=== PATIENT | female | born 1985 | race Caucasian/White ===

== ENCOUNTER → 2024-01-27 12:20 | Outpatient (CLI) | payer OTHER, SELFPAY ==
--- NOTE | 2024-01-27 12:24 | DI.US.S_ITS ---
PROCEDURE: US OB >= 14 WEEKS FETUS INDICATIONS: anatomy scan OUTSIDE/PRIOR DATING DATA: Last menstrual period (LMP): 09/17/2023. LMP-based estimated date of delivery (SARAH): 06/23/2024. TECHNIQUE: Real-time scanning was performed of the fetus, with image documentation and biometric measurements. Endovaginal scanning: No COMPARISON: None. FINDINGS: General: A single living intrauterine gestation is present. Presentation: Breech. Placenta: Placental position is anterior , without previa. Amniotic fluid index: 15.5 cm, normal range is 5-24 cm. Single deepest vertical pocket is 4.5 cm. heart rate: 153 beats per minute. Maternal cervical canal: 4.9 cm long. Normal lower limit is 2.5 cm. biometrics: Biparietal diameter: 4.3 cm, 19 week 0 day Head circumference: 15.5 cm, 18 week 3 day Abdominal circumference: 13.7 cm, 19 week 1 day Femur length: 28.3 cm, 18 week 5 day Clinically estimated gestational age: 18 week 6 day Composite gestational age from present scan: 18 week 6 day Estimated weight and percentile: 261 g, 45 percentile Anatomic survey: Neuro: Ventricles are non-dilated at less than 10 mm. Cisterna magna is normal at 3-11 mm. Cerebellum is normal in size and morphology. Nuchal skin fold: Normal at less than 6 mm between 14-21 weeks gestational age. Face: Nose and lips, facial profile are normal. Spine: Not well seen Heart: Not well seen Diaphragm: Diaphragm is intact. Stomach: Left-sided stomach is present. Kidneys: Right kidney not well seen Cord: 3-vessel cord has orthotopic insertion. Bladder: Normal in size. Extremities: All 4 extremities identified. IMPRESSION: Single live intrauterine consistent with 18 week 6 day gestation. spine, cardiac views, and right kidney are not well seen currently. Attention on follow-up. Approved by: Darren Manuel M.D. on 01/27/2024 at 16:41
== END ==
PROVIDERS: Referring Provider Obstetrics & Gynecology; Visit Provider Obstetrics & Gynecology
DX: O32.1XX0 Maternal care for breech presentation, not applicable or unspecified (principal); Z3A.18 18 weeks gestation of pregnancy
CPT/HCPCS: 76811

== ENCOUNTER → 2024-03-09 10:51 | Outpatient (CLI) | payer OTHER, SELFPAY ==
--- NOTE | 2024-03-09 10:53 | DI.US.S_ITS ---
PROCEDURE: US OB LIMITED INDICATIONS: f/u incomplete FAS views OUTSIDE/PRIOR DATING DATA: Last menstrual period (LMP): 09/17/2023. LMP-based estimated date of delivery (SARAH): 06/23/2024. First dating scan (date and location): Not applicable. Estimated date of delivery (SARAH) from first dating scan: Not applicable. The calculations are made using the working SARAH of 06/23/2024. TECHNIQUE: Real-time scanning was performed of the fetus, with image documentation and biometric measurements. Endovaginal scanning: No COMPARISON: None. FINDINGS: General: A single living intrauterine gestation is present. Presentation: Vertex. Placenta: Placental position is anterior, without previa. Amniotic fluid index: 11.4 cm, normal range is 5-24 cm. Single deepest vertical pocket is 4.2 cm. heart rate: 132 beats per minute. Maternal cervical canal: 4.2 cm long. Normal lower limit is 2.5 cm. Clinically estimated gestational age: 24 week 6 day Other: Not applicable. IMPRESSION: Single live intrauterine consistent with 24 week 6 day gestation. Cardiac outflow tracks, lumbosacral spine, both kidneys are adequately observed and appear normal. This results in a completed normal appearing anatomic survey Approved by: Darren Manuel M.D. on 03/09/2024 at 15:31
== END ==
PROVIDERS: Referring Provider Obstetrics & Gynecology; Visit Provider Obstetrics & Gynecology
DX: Z36.89 Encounter for other specified antenatal screening (principal); Z3A.24 24 weeks gestation of pregnancy
CPT/HCPCS: 76815

== ENCOUNTER → 2024-03-12 10:02 | Outpatient (CLI) | payer OTHER, SELFPAY ==
[2024-03-12 13:00] LABS: Hematocrit 36.8 % (36-46); Hemoglobin 12.6 g/dL (12.0-16.0)
[2024-03-12 15:55] LABS: GTT (PREG) 1 Hour PP 50gm Dose 146 mg/dL (76-139)
== END ==
PROVIDERS: Referring Provider Obstetrics & Gynecology; Visit Provider Obstetrics & Gynecology
DX: Z34.02 Encounter for supervision of normal first pregnancy, second trimester (principal); Z3A.26 26 weeks gestation of pregnancy
CPT/HCPCS: 36415; 82950; 85014; 85018; 86850; 86900; 86901

== ENCOUNTER → 2024-04-10 14:10 | Outpatient (CLI) | payer OTHER, SELFPAY | PROVIDERS: Visit Provider Obstetrics & Gynecology | DX: Z34.82 Encounter for supervision of other normal pregnancy, second trimester (principal); Z3A.29 29 weeks gestation of pregnancy | CPT/HCPCS: 87086 ==

== ENCOUNTER → 2024-05-08 11:04 | Outpatient (CLI) | payer OTHER, SELFPAY ==
[2024-05-08 11:51] LABS: Add Manual Diff / Slide Review NO; Basophils Absolute Auto 0 /uL (0-100); Basophils Percent Auto 0.2 % (0-2); Eosinophils Absolute Auto 100 /uL (0-450); Eosinophils Percent Auto 1.1 % (2-4); Hematocrit 38.1 % (36-46); Lymphocytes Absolute Auto 1000 /uL (1100-4500); Lymphocytes Percent Auto 8.9 % (25-40); Mean Corpuscular HGB Conc 34.1 % (30-36); Mean Corpuscular Hemoglobin 32.3 PG (26-34); Mean Corpuscular Volume 94.8 fL (80-100); Monocytes Absolute Auto 700 /uL (0-900); Monocytes Percent Auto 6.2 % (3-14); Neutrophils Absolute Auto 9300 /uL (1500-7000); Neutrophils Percent Auto 83.6 % (50-75); Platelet Count 228 X10^3/uL (150-400); Red Blood Cell Count 4.01 X10^6/uL (4.0-5.2); Red Cell Distribution Width 13.5 % (11.6-14.8); White Blood Cell Count 11.2 X10^3/uL (4.5-11.0)
[2024-05-08 12:12] LABS: Alanine Aminotransferase 46 IU/L (<35); Albumin 3.6 g/dL (3.5-5.0); Albumin Globulin Ratio 1.1 (1.0-2.8); Alkaline Phosphatase 136 U/L (38-126); Aspartate Aminotransferase 30 IU/L (14-36); BUN Creatinine Ratio 13.7 (6-22); Bilirubin Total 0.3 mg/dL (0.2-1.3); Blood Urea Nitrogen 7 mg/dL (7-17); Calcium 9.6 mg/dL (8.4-10.2); Carbon Dioxide 25 mmol/L (22-32); Chloride 102 mmol/L (98-107); Estimated Glomerular Filt Rate > 60 mL/min (>60); Globulin 3.2 g/dL (1.7-4.1); Glucose 97 mg/dL (70-100); HEMOLYSIS < 15 (0-50); Potassium 4.5 mmol/L (3.4-5.1); Sodium 132 mmol/L (137-145); Total Protein 6.8 g/dL (6.3-8.2)
[2024-05-08 13:59] LABS: Creatinine Urine Random 9.06 mg/dL; Protein (Total) Urine Random 16 mg/dL (0-12); Protein Creatinine Ratio Urine 1.76 GRAM/24H
== END ==
PROVIDERS: Referring Provider Obstetrics & Gynecology; Visit Provider Obstetrics & Gynecology
DX: O26.00 Excessive weight gain in pregnancy, unspecified trimester (principal)
CPT/HCPCS: 36415; 80053; 82570; 84156; 85025

== ENCOUNTER → 2024-05-14 07:56 | Outpatient (CLI) | payer OTHER, SELFPAY ==
[2024-05-14 09:01] LABS: Collection Time Urine 24 Hours; Protein (Total) Urine Random 13 mg/dL (0-12); Total Protein 24 Hour Urine 709 mg/day (42-225); Total Volume Urine 5450 mL
[2024-05-14 12:48] LABS: Add Manual Diff / Slide Review NO; Basophils Absolute Auto 0 /uL (0-100); Basophils Percent Auto 0.3 % (0-2); Eosinophils Absolute Auto 100 /uL (0-450); Eosinophils Percent Auto 1.3 % (2-4); Hematocrit 36.1 % (36-46); Hemoglobin 12.5 g/dL (12.0-16.0); Lymphocytes Absolute Auto 1000 /uL (1100-4500); Lymphocytes Percent Auto 10.7 % (25-40); Mean Corpuscular HGB Conc 34.5 % (30-36); Mean Corpuscular Hemoglobin 32.8 PG (26-34); Mean Corpuscular Volume 95.1 fL (80-100); Monocytes Absolute Auto 600 /uL (0-900); Monocytes Percent Auto 6.3 % (3-14); Neutrophils Absolute Auto 7800 /uL (1500-7000); Neutrophils Percent Auto 81.4 % (50-75); Platelet Count 212 X10^3/uL (150-400); Red Cell Distribution Width 13.4 % (11.6-14.8); White Blood Cell Count 9.5 X10^3/uL (4.5-11.0)
[2024-05-14 13:17] LABS: Alanine Aminotransferase 38 IU/L (<35); Albumin 3.6 g/dL (3.5-5.0); Albumin Globulin Ratio 1.3 (1.0-2.8); Alkaline Phosphatase 147 U/L (38-126); Aspartate Aminotransferase 26 IU/L (14-36); BUN Creatinine Ratio 15.1 (6-22); Bilirubin Total 0.2 mg/dL (0.2-1.3); Blood Urea Nitrogen 8 mg/dL (7-17); Calcium 9.4 mg/dL (8.4-10.2); Carbon Dioxide 23 mmol/L (22-32); Chloride 103 mmol/L (98-107); Estimated Glomerular Filt Rate > 60 mL/min (>60); Globulin 2.7 g/dL (1.7-4.1); Glucose 99 mg/dL (70-100); HEMOLYSIS < 15 (0-50); Potassium 4.1 mmol/L (3.4-5.1); Sodium 133 mmol/L (137-145); Total Protein 6.3 g/dL (6.3-8.2)
== END ==
PROVIDERS: Referring Provider Obstetrics & Gynecology; Visit Provider Obstetrics & Gynecology
DX: O14.90 Unspecified pre-eclampsia, unspecified trimester (principal); R77.8 Other specified abnormalities of plasma proteins
CPT/HCPCS: 36415; 80053; 84156; 85025

== ENCOUNTER 2024-05-14 08:07 | Outpatient (CLI) | payer OTHER, SELFPAY | END 2024-05-14 08:40 | disposition home or self-care (01) | LOC: OB 05-15 08:09 | PROVIDERS: Referring Provider Obstetrics & Gynecology; Visit Provider Obstetrics & Gynecology | DX: O09.513 Supervision of elderly primigravida, third trimester (principal); O14.93 Unspecified pre-eclampsia, third trimester; O99.891 Other specified diseases and conditions complicating pregnancy; R77.8 Other specified abnormalities of plasma proteins; Z3A.34 34 weeks gestation of pregnancy | CPT/HCPCS: 36415; 59025; 80053; 84156; 85025; G0378; G0379 ==

== ENCOUNTER 2024-05-18 11:47 | Outpatient (CLI) | payer OTHER, SELFPAY | END 2024-05-18 12:20 | disposition home or self-care (01) | LOC: LABOR 12:15 → OB 05-22 08:32 | PROVIDERS: Referring Provider Obstetrics & Gynecology; Visit Provider Obstetrics & Gynecology | DX: O09.513 Supervision of elderly primigravida, third trimester (principal); O14.93 Unspecified pre-eclampsia, third trimester; Z3A.34 34 weeks gestation of pregnancy | CPT/HCPCS: 59025; G0378; G0379 ==

== ENCOUNTER 2024-05-21 11:03 | Observation (INO) | payer OTHER, SELFPAY ==
[2024-05-21 14:07] LABS: Creatinine Urine Random 19.32 mg/dL; Protein (Total) Urine Random 12 mg/dL (0-12); Protein Creatinine Ratio Urine 0.62 GRAM/24H
== END 2024-05-21 14:22 | disposition home or self-care (01) ==
PROVIDERS: Obstetrics & Gynecology; Admitting Provider Obstetrics & Gynecology; Referring Provider Obstetrics & Gynecology; Visit Provider Obstetrics & Gynecology
DX: O14.93 Unspecified pre-eclampsia, third trimester (principal); O09.513 Supervision of elderly primigravida, third trimester; Z3A.35 35 weeks gestation of pregnancy
CPT/HCPCS: 36415; 82565; 82570; 84156; 84450; 84460; 84520; 84550; 85025; G0378; G0379

== ENCOUNTER → 2024-05-21 11:06 | Outpatient (CLI) | payer OTHER, SELFPAY ==
[2024-05-21 11:50] LABS: Add Manual Diff / Slide Review NO; Basophils Absolute Auto 0 /uL (0-100); Basophils Percent Auto 0.2 % (0-2); Eosinophils Absolute Auto 100 /uL (0-450); Eosinophils Percent Auto 1.5 % (2-4); Hematocrit 37.3 % (36-46); Hemoglobin 12.8 g/dL (12.0-16.0); Lymphocytes Absolute Auto 900 /uL (1100-4500); Lymphocytes Percent Auto 9.6 % (25-40); Mean Corpuscular HGB Conc 34.3 % (30-36); Mean Corpuscular Hemoglobin 32.7 PG (26-34); Mean Corpuscular Volume 95.3 fL (80-100); Monocytes Absolute Auto 500 /uL (0-900); Monocytes Percent Auto 5.5 % (3-14); Neutrophils Absolute Auto 8100 /uL (1500-7000); Neutrophils Percent Auto 83.2 % (50-75); Platelet Count 204 X10^3/uL (150-400); Red Blood Cell Count 3.92 X10^6/uL (4.0-5.2); Red Cell Distribution Width 13.6 % (11.6-14.8); White Blood Cell Count 9.7 X10^3/uL (4.5-11.0)
[2024-05-21 12:35] LABS: Alanine Aminotransferase 40 IU/L (<35); Aspartate Aminotransferase 24 IU/L (14-36); BUN Creatinine Ratio 15.9 (6-22); Blood Urea Nitrogen 7 mg/dL (7-17); Estimated Glomerular Filt Rate > 60 mL/min (>60); Uric Acid 3.3 mg/dL (2.5-6.2)
== END ==
LOC: LAB 11:06
PROVIDERS: Referring Provider Obstetrics & Gynecology; Visit Provider Obstetrics & Gynecology
DX: O14.90 Unspecified pre-eclampsia, unspecified trimester (principal)
CPT/HCPCS: 36415; 82565; 84450; 84460; 84520; 84550; 85025

== ENCOUNTER 2024-05-24 07:52 | Outpatient (CLI) | payer OTHER, SELFPAY | END 2024-05-24 08:38 | disposition home or self-care (01) | LOC: LABOR 08:38 → OB 05-28 06:18 | PROVIDERS: Referring Provider Obstetrics & Gynecology; Visit Provider Obstetrics & Gynecology | DX: O14.93 Unspecified pre-eclampsia, third trimester (principal); O09.513 Supervision of elderly primigravida, third trimester; Z3A.35 35 weeks gestation of pregnancy | CPT/HCPCS: 59025; 76815; G0378; G0379 ==

== ENCOUNTER 2024-05-29 07:40 | Outpatient (CLI) | payer OTHER, SELFPAY | END 2024-05-29 08:25 | disposition home or self-care (01) | LOC: OB 05-31 06:10 | PROVIDERS: Referring Provider Obstetrics & Gynecology; Visit Provider Obstetrics & Gynecology | DX: O14.93 Unspecified pre-eclampsia, third trimester (principal); O09.513 Supervision of elderly primigravida, third trimester; Z3A.36 36 weeks gestation of pregnancy | CPT/HCPCS: 36415; 59025; 82565; 84450; 84460; 84520; 84550; 85025; 87653; G0378; G0379 ==

== ENCOUNTER → 2024-05-29 08:23 | Outpatient (CLI) | payer OTHER, SELFPAY ==
[2024-05-29 08:53] LABS: Add Manual Diff / Slide Review NO; Basophils Absolute Auto 0 /uL (0-100); Basophils Percent Auto 0.3 % (0-2); Eosinophils Absolute Auto 300 /uL (0-450); Eosinophils Percent Auto 2.5 % (2-4); Hematocrit 36.2 % (36-46); Hemoglobin 12.6 g/dL (12.0-16.0); Lymphocytes Absolute Auto 900 /uL (1100-4500); Mean Corpuscular HGB Conc 34.8 % (30-36); Mean Corpuscular Hemoglobin 32.8 PG (26-34); Mean Corpuscular Volume 94.4 fL (80-100); Monocytes Absolute Auto 500 /uL (0-900); Monocytes Percent Auto 4.8 % (3-14); Neutrophils Absolute Auto 8300 /uL (1500-7000); Neutrophils Percent Auto 83.4 % (50-75); Platelet Count 188 X10^3/uL (150-400); Red Blood Cell Count 3.84 X10^6/uL (4.0-5.2); Red Cell Distribution Width 13.7 % (11.6-14.8)
[2024-05-29 09:10] LABS: Alanine Aminotransferase 34 IU/L (<35); Aspartate Aminotransferase 24 IU/L (14-36); BUN Creatinine Ratio 14.3 (6-22); Blood Urea Nitrogen 6 mg/dL (7-17); Estimated Glomerular Filt Rate > 60 mL/min (>60); Uric Acid 3.2 mg/dL (2.5-6.2)
[2024-05-30 09:05] LABS: Strep Grp B PCR NEG for Grp B Strep
== END ==
PROVIDERS: Referring Provider Obstetrics & Gynecology; Visit Provider Obstetrics & Gynecology
DX: Z34.83 Encounter for supervision of other normal pregnancy, third trimester (principal); Z3A.36 36 weeks gestation of pregnancy
CPT/HCPCS: 36415; 82565; 84450; 84460; 84520; 84550; 85025; 87653

== ENCOUNTER 2024-05-31 13:35 | Outpatient (CLI) | payer OTHER, SELFPAY ==
--- NOTE | 2024-05-31 14:03 | PM.OBTRLD ---
Visit Information Visit Information Date of evaluation: 05/31/24 Primary OB Provider: Sandra Rojas On-call OB Provider: Allan Bradley Reason for Evaluation: Yes non-stress test Comments/Additional reasons for admission: Isolated proteinuria, improving, 36+5 wks EGA Vital Signs Vital Signs: IV=977/84, P=90, T=36.7 [facility] Medical History (Updated 04/24/24 @ 10:40 by Allan Bradley MD) Maternal excessive weight gain Acne (~2001) Allergies (~1988) Depression (~2021) Anxiety (~2021) Fractures Chicken pox (~1988) Painful menstrual periods (~2021) Ovarian cyst (~2022) Full body hives Ruptured ectopic (~2021) Surgical History (Updated 03/14/24 @ 20:20 by Karon Seth) Anesthesia History of tonsillectomy and adenoidectomy (~1990) [place] teeth extracted (~2001) H/O unilateral salpingectomy (~05/03/22) Family History (Updated 03/14/24 @ 20:23 by Karon Seth) Mother COPD (chronic obstructive pulmonary disease) Smoker Polysubstance abuse Bipolar 1 disorder Liver failure Pancreatitis Adopted Mental health problem Father Congestive heart failure Polysubstance abuse History of heart disease Hyperlipidemia Grandmother Hyperlipidemia Cardiovascular disease COVID History of heart disease S/P triple vessel bypass Uncle Cardiovascular disease Hyperlipidemia Social History marital status: number of children: 0 household members: spouse lives independently: Yes caregiver/support person: No housing: apartment pets and animals: Yes (dog) education level: master's degree occupational status: employed (active duty [employer]) current occupational exposures/hazards: Yes (stopped all Hazmat duties on learning of ) special nelson needs: No travel history: recent (domestic only) seatbelt use: always helmet use: Yes water heater temp set < 120 deg: Yes working smoke detector in home: Yes fire extinguisher in home: Yes carbon monox detector in home: Yes firearms in home: Yes firearms unloaded and locked: Yes do you feel safe at home: Yes Smoking Status: Never smoker second hand exposure: No alcohol intake: former (occasionally when not ) substance use type: does not use during the past year weight has: other (fluctuated following ruptured ectopic) well-balanced diet: daily or most days daily servings fruits/ve-4 caffeine: Yes (minimal, only decaf since becoming ) Type(s) of exercise: walking and other (hiking) frequency: 1-2 times per week Review of Systems Review of Systems Narrative: Problem-specific ROS positives included in HPI Evaluation Evaluation Baseline heart rate: 135 Variability: Moderate (11-25) monitor accelerations: Present Monitor Decelerations: Absent Category of Tracing: Reactive Diagnosis, Plan/Disposition Final Diagnosis (1) Encounter for supervision of other normal , unspecified trimester: Status: Acute Plan/Disposition Plan: Continue weekly NSTs as scheduled. OB Disposition: home
== END 2024-05-31 14:05 | disposition home or self-care (01) ==
LOC: LABOR 14:44 → OB 06-01 10:11
PROVIDERS: Referring Provider Obstetrics & Gynecology; Visit Provider Obstetrics & Gynecology
DX: O12.13 Gestational proteinuria, third trimester (principal); Z3A.36 36 weeks gestation of pregnancy
CPT/HCPCS: 59025; G0378; G0379

== ENCOUNTER 2024-06-05 07:58 | Outpatient (CLI) | payer OTHER, SELFPAY ==
[2024-06-05 09:21] LABS: Add Manual Diff / Slide Review NO; Basophils Absolute Auto 0 /uL (0-100); Basophils Percent Auto 0.3 % (0-2); Eosinophils Absolute Auto 300 /uL (0-450); Eosinophils Percent Auto 3.1 % (2-4); Hematocrit 36.2 % (36-46); Hemoglobin 12.6 g/dL (12.0-16.0); Lymphocytes Absolute Auto 1100 /uL (1100-4500); Lymphocytes Percent Auto 9.6 % (25-40); Mean Corpuscular HGB Conc 34.7 % (30-36); Mean Corpuscular Hemoglobin 32.6 PG (26-34); Mean Corpuscular Volume 93.9 fL (80-100); Monocytes Absolute Auto 700 /uL (0-900); Monocytes Percent Auto 6.3 % (3-14); Neutrophils Absolute Auto 8900 /uL (1500-7000); Neutrophils Percent Auto 80.7 % (50-75); Platelet Count 195 X10^3/uL (150-400); Red Blood Cell Count 3.86 X10^6/uL (4.0-5.2); Red Cell Distribution Width 13.5 % (11.6-14.8)
[2024-06-05 09:26] LABS: Alanine Aminotransferase 34 IU/L (<35); Albumin 3.7 g/dL (3.5-5.0); Albumin Globulin Ratio 1.2 (1.0-2.8); Alkaline Phosphatase 170 U/L (38-126); Aspartate Aminotransferase 32 IU/L (14-36); BUN Creatinine Ratio 16.7 (6-22); Bilirubin Total 0.2 mg/dL (0.2-1.3); Blood Urea Nitrogen 7 mg/dL (7-17); Calcium 9.7 mg/dL (8.4-10.2); Carbon Dioxide 23 mmol/L (22-32); Chloride 104 mmol/L (98-107); Estimated Glomerular Filt Rate > 60 mL/min (>60); Glucose 100 mg/dL (70-100); HEMOLYSIS < 15 (0-50); Sodium 133 mmol/L (137-145); Total Protein 6.7 g/dL (6.3-8.2)
== END 2024-06-05 08:42 | disposition home or self-care (01) ==
LOC: LABOR 08:38 → OB 06-07 09:45
PROVIDERS: Referring Provider Obstetrics & Gynecology; Visit Provider Obstetrics & Gynecology
DX: O14.93 Unspecified pre-eclampsia, third trimester (principal); O09.513 Supervision of elderly primigravida, third trimester; Z3A.37 37 weeks gestation of pregnancy
CPT/HCPCS: 59025; 80053; 85025; G0378; G0379

== ENCOUNTER 2024-06-08 10:52 | Outpatient (CLI) | payer OTHER, SELFPAY ==
--- NOTE | 2024-06-08 11:17 | P.TNLD_ITS ---
Visit Information Visit Information Date of evaluation: 06/08/24 Primary OB Provider: Sandra Rojas On-call OB Provider: Sarah Burns Reason for Evaluation: Yes non-stress test Vital Signs Vital Signs: maternal VS reviewed in OBIX, 130s/70s, no mild or severe range readings over serial observation [facility] Medical History (Updated 04/24/24 @ 10:40 by Allan Bradley MD) Maternal excessive weight gain Acne (~2001) Allergies (~1988) Depression (~2021) Anxiety (~2021) Fractures Chicken pox (~1988) Painful menstrual periods (~2021) Ovarian cyst (~2022) Full body hives Ruptured ectopic (~2021) Surgical History (Updated 03/14/24 @ 20:20 by Karon Seth) Anesthesia History of tonsillectomy and adenoidectomy (~1990) [place] teeth extracted (~2001) H/O unilateral salpingectomy (~05/03/22) Family History (Updated 03/14/24 @ 20:23 by Karon Seth) Mother COPD (chronic obstructive pulmonary disease) Smoker Polysubstance abuse Bipolar 1 disorder Liver failure Pancreatitis Adopted Mental health problem Father Congestive heart failure Polysubstance abuse History of heart disease Hyperlipidemia Grandmother Hyperlipidemia Cardiovascular disease COVID History of heart disease S/P triple vessel bypass Uncle Cardiovascular disease Hyperlipidemia Social History marital status: number of children: 0 household members: spouse lives independently: Yes caregiver/support person: No housing: apartment pets and animals: Yes (dog) education level: master's degree occupational status: employed (active duty [employer] current occupational exposures/hazards: Yes (stopped all Hazmat duties on learning of ) special nelson needs: No travel history: recent (domestic only) seatbelt use: always helmet use: Yes water heater temp set < 120 deg: Yes working smoke detector in home: Yes fire extinguisher in home: Yes carbon monox detector in home: Yes firearms in home: Yes firearms unloaded and locked: Yes do you feel safe at home: Yes Smoking Status: Never smoker second hand exposure: No alcohol intake: former (occasionally when not ) substance use type: does not use during the past year weight has: other (fluctuated following ruptured ectopic) well-balanced diet: daily or most days daily servings fruits/ve-4 caffeine: Yes (minimal, only decaf since becoming ) Type(s) of exercise: walking and other (hiking) frequency: 1-2 times per week Review of Systems Review of Systems ROS: Yes All systems reviewed with the patient and are negative except as otherwise documented Evaluation Evaluation Baseline heart rate: 140 Variability: Moderate (11-25) monitor accelerations: Present Monitor Decelerations: Absent Uterine Contraction Intensity: Mild Category of Tracing: Reactive Status: Category l Diagnosis, Plan/Disposition Plan/Disposition Plan: reactive NST strict PIH precautions f/u in office as scheduled OB Disposition: home
== END 2024-06-08 11:34 | disposition home or self-care (01) ==
LOC: LABOR 11:22 → OB 06-11 08:17
PROVIDERS: Referring Provider Obstetrics & Gynecology; Visit Provider Obstetrics & Gynecology
DX: O14.93 Unspecified pre-eclampsia, third trimester (principal); O09.513 Supervision of elderly primigravida, third trimester; Z3A.37 37 weeks gestation of pregnancy
CPT/HCPCS: 59025; G0378; G0379

== ENCOUNTER 2024-06-12 09:52 | Outpatient (CLI) | payer OTHER, SELFPAY ==
[2024-06-12 10:42] LABS: Add Manual Diff / Slide Review NO; Basophils Absolute Auto 0 /uL (0-100); Basophils Percent Auto 0.4 % (0-2); Eosinophils Absolute Auto 300 /uL (0-450); Eosinophils Percent Auto 2.8 % (2-4); Hematocrit 36.3 % (36-46); Hemoglobin 12.6 g/dL (12.0-16.0); Lymphocytes Absolute Auto 900 /uL (1100-4500); Mean Corpuscular HGB Conc 34.7 % (30-36); Mean Corpuscular Hemoglobin 32.8 PG (26-34); Mean Corpuscular Volume 94.5 fL (80-100); Monocytes Absolute Auto 600 /uL (0-900); Monocytes Percent Auto 6.5 % (3-14); Neutrophils Absolute Auto 7600 /uL (1500-7000); Neutrophils Percent Auto 80.3 % (50-75); Platelet Count 211 X10^3/uL (150-400); Red Blood Cell Count 3.84 X10^6/uL (4.0-5.2); Red Cell Distribution Width 13.8 % (11.6-14.8); White Blood Cell Count 9.4 X10^3/uL (4.5-11.0)
[2024-06-12 10:58] LABS: Alanine Aminotransferase 30 IU/L (<35); Albumin 3.7 g/dL (3.5-5.0); Albumin Globulin Ratio 1.2 (1.0-2.8); Alkaline Phosphatase 191 U/L (38-126); Aspartate Aminotransferase 28 IU/L (14-36); Bilirubin Total 0.2 mg/dL (0.2-1.3); Blood Urea Nitrogen 9 mg/dL (7-17); Calcium 9.1 mg/dL (8.4-10.2); Carbon Dioxide 22 mmol/L (22-32); Chloride 104 mmol/L (98-107); Estimated Glomerular Filt Rate > 60 mL/min (>60); Globulin 3.2 g/dL (1.7-4.1); Glucose 117 mg/dL (70-100); HEMOLYSIS < 15 (0-50); Potassium 4.1 mmol/L (3.4-5.1); Sodium 131 mmol/L (137-145); Total Protein 6.9 g/dL (6.3-8.2); Uric Acid 2.7 mg/dL (2.5-6.2)
== END 2024-06-12 10:35 | disposition home or self-care (01) ==
LOC: LABOR 10:13 → OB 12:42
PROVIDERS: Referring Provider Obstetrics & Gynecology; Visit Provider Obstetrics & Gynecology
DX: O14.93 Unspecified pre-eclampsia, third trimester (principal); O09.513 Supervision of elderly primigravida, third trimester; Z3A.38 38 weeks gestation of pregnancy
CPT/HCPCS: 36415; 59025; 80053; 84550; 85025; G0378; G0379

== ENCOUNTER 2024-06-15 10:46 | Outpatient (CLI) | payer OTHER, SELFPAY ==
--- NOTE | 2024-06-15 11:21 | PM.OBTRLD ---
Visit Information Visit Information Date of evaluation: 06/15/24 Primary OB Provider: Sandra Rojas Reason for Evaluation: Yes non-stress test Comments/Additional reasons for admission: scheduled NST, AMA, chronic proteinuria without PIH Vital Signs Vital Signs: maternal VS reviewed in OBIX and wnl, no mild or severe range values PFSH Medical History (Updated 04/24/24 @ 10:40 by Allan Bradley MD) Maternal excessive weight gain Acne (~2001) Allergies (~1988) Depression (~2021) Anxiety (~2021) Fractures Chicken pox (~1988) Painful menstrual periods (~2021) Ovarian cyst (~2022) Full body hives Ruptured ectopic (~2021) Surgical History (Updated 03/14/24 @ 20:20 by Karon Seth) Anesthesia History of tonsillectomy and adenoidectomy (~1990) [place] teeth extracted (~2001) H/O unilateral salpingectomy (~05/03/22) Family History (Updated 03/14/24 @ 20:23 by Karon Seth) Mother COPD (chronic obstructive pulmonary disease) Smoker Polysubstance abuse Bipolar 1 disorder Liver failure Pancreatitis Adopted Mental health problem Father Congestive heart failure Polysubstance abuse History of heart disease Hyperlipidemia Grandmother Hyperlipidemia Cardiovascular disease COVID History of heart disease S/P triple vessel bypass Uncle Cardiovascular disease Hyperlipidemia Social History marital status: number of children: 0 household members: spouse lives independently: Yes caregiver/support person: No housing: apartment pets and animals: Yes (dog) education level: master's degree occupational status: employed (active duty [employer]) current occupational exposures/hazards: Yes (stopped all Hazmat duties on learning of ) special nelson needs: No travel history: recent (domestic only) seatbelt use: always helmet use: Yes water heater temp set < 120 deg: Yes working smoke detector in home: Yes fire extinguisher in home: Yes carbon monox detector in home: Yes firearms in home: Yes firearms unloaded and locked: Yes do you feel safe at home: Yes Smoking Status: Never smoker second hand exposure: No alcohol intake: former (occasionally when not ) substance use type: does not use during the past year weight has: other (fluctuated following ruptured ectopic) well-balanced diet: daily or most days daily servings fruits/ve-4 caffeine: Yes (minimal, only decaf since becoming ) Type(s) of exercise: walking and other (hiking) frequency: 1-2 times per week Review of Systems Review of Systems ROS: Yes All systems reviewed with the patient and are negative except as otherwise documented Evaluation Evaluation Baseline heart rate: 140 Variability: Moderate (11-25) monitor accelerations: Present Monitor Decelerations: Absent Category of Tracing: Reactive Status: Category l Diagnosis, Plan/Disposition Plan/Disposition Plan: planned IOL 06/17/24, overnight cervical ripening routine FM/labor/PIH precautions OB Disposition: home
[2024-06-15 11:35] VITALS: BP 129/80
== END 2024-06-15 11:39 | disposition home or self-care (01) ==
LOC: LABOR 11:21 → OB 06-18 11:20
PROVIDERS: Referring Provider Obstetrics & Gynecology; Visit Provider Obstetrics & Gynecology
DX: O12.13 Gestational proteinuria, third trimester (principal); O09.523 Supervision of elderly multigravida, third trimester; Z3A.39 39 weeks gestation of pregnancy
CPT/HCPCS: 59025; G0378; G0379

== ENCOUNTER 2024-06-17 19:23 | Inpatient (IN) | payer OTHER, SELFPAY ==
[2024-06-17 20:52] LABS: Add Manual Diff / Slide Review NO; Basophils Absolute Auto 0 /uL (0-100); Basophils Percent Auto 0.3 % (0-2); Eosinophils Absolute Auto 200 /uL (0-450); Eosinophils Percent Auto 2.2 % (2-4); Hematocrit 37.9 % (36-46); Hemoglobin 12.8 g/dL (12.0-16.0); Lymphocytes Absolute Auto 1200 /uL (1100-4500); Lymphocytes Percent Auto 11.9 % (25-40); Mean Corpuscular HGB Conc 33.8 % (30-36); Mean Corpuscular Hemoglobin 31.8 PG (26-34); Mean Corpuscular Volume 94.1 fL (80-100); Monocytes Absolute Auto 600 /uL (0-900); Monocytes Percent Auto 5.4 % (3-14); Neutrophils Absolute Auto 8200 /uL (1500-7000); Neutrophils Percent Auto 80.2 % (50-75); Platelet Count 221 X10^3/uL (150-400); Red Blood Cell Count 4.03 X10^6/uL (4.0-5.2); Red Cell Distribution Width 13.7 % (11.6-14.8); White Blood Cell Count 10.3 X10^3/uL (4.5-11.0)
[2024-06-17 21:03] LABS: Alanine Aminotransferase 34 IU/L (<35); Albumin 3.7 g/dL (3.5-5.0); Albumin Globulin Ratio 1.1 (1.0-2.8); Alkaline Phosphatase 206 U/L (38-126); Aspartate Aminotransferase 28 IU/L (14-36); Bilirubin Total 0.5 mg/dL (0.2-1.3); Blood Urea Nitrogen 6 mg/dL (7-17); Carbon Dioxide 21 mmol/L (22-32); Chloride 104 mmol/L (98-107); Estimated Glomerular Filt Rate > 60 mL/min (>60); Globulin 3.3 g/dL (1.7-4.1); Glucose 106 mg/dL (70-100); HEMOLYSIS < 15 (0-50); Potassium 3.4 mmol/L (3.4-5.1); Sodium 130 mmol/L (137-145)
[2024-06-17 21:10] VITALS: BP 132/89
[2024-06-17] MEDS: DINOPROSTONE VAG (CERVIDIL) 10 MG VAG (21:44)
--- NOTE | 2024-06-18 07:09 | P.HPOB_ITS ---
OB HPI Date/Time Date of admission: 06/17/24 Date Patient Seen: 06/18/24 Time Patient Seen: 07:00 History of Present Condition Chief complaint: Induction SARAH Calculator 2 Estimated Delivery Date Method Current WG Current Estimate 06/23/24 LMP (Certain) 39w 2d : 2 Para: 0 care: good care Dating criteria OB: LMP confirmed by 1st trimester US Ultrasounds: normal mid trimester US Abnormal ultrasound findings: placental [place] of undetermined significance noted on interval growth scan 05/24/24, EFW 80th% Obstetrical complications: other (proteinuria without additional s/sx of PIH) Medical complications OB: other (abnormal 1h OGTT, normal home BG checks, AMA) Indications Indication for induction OB: other (AMA at term, proteinuria NOS) Preadmission Labs Last OB Lab Results: 2 Blood Type A Positive 06/17/24 20:38 Antibody Screen Negative 06/17/24 20:38 Hct 37.9 % (36-46) 06/17/24 20:38 Hgb 12.8 g/dL (12.0-16.0) 06/17/24 20:38 Glucose 1 Hr 50 gm 146 mg/dL (76-139) H 03/12/24 12:45 Group B Strep (PCR) Neg for grp b strep 05/29/24 08:50 -: Chlamydia screen: negative, Gonorrhea screen: negative and Urine: negative External Labs -: Urine: negative Prior (ies) Past Pregnancies Del. Date GA/Weeks Labor Lgth Wt Sex Route Outcome Anesthesia Place Delv Breastfeed Preg Comp Name 04/29/22 6 ectopic Delivery Date: 04/29/22 Last Updated by: Josey Dowell RN ruptured->R salpingectomy, severe blood loss Evaluation Evaluation Baseline heart rate: 140 Variability: Moderate (11-25) monitor accelerations: Present Monitor Decelerations: Absent Contraction Frequency (minutes): 7 Uterine Contraction Intensity: Mild Category of Tracing: Reactive Status: Category l PFSH Medical History (Updated 04/24/24 @ 10:40 by Allan Bradley MD) Maternal excessive weight gain Acne (~2001) Allergies (~1988) Depression (~2021) Anxiety (~2021) Fractures Chicken pox (~1988) Painful menstrual periods (~2021) Ovarian cyst (~2022) Full body hives Ruptured ectopic (~2021) Surgical History (Updated 03/14/24 @ 20:20 by Karon Seth) Anesthesia History of tonsillectomy and adenoidectomy (~1990) [place] teeth extracted (~2001) H/O unilateral salpingectomy (~05/03/22) Family History (Updated 03/14/24 @ 20:23 by Karon Seth) Mother COPD (chronic obstructive pulmonary disease) Smoker Polysubstance abuse Bipolar 1 disorder Liver failure Pancreatitis Adopted Mental health problem Father Congestive heart failure Polysubstance abuse History of heart disease Hyperlipidemia Grandmother Hyperlipidemia Cardiovascular disease COVID History of heart disease S/P triple vessel bypass Uncle Cardiovascular disease Hyperlipidemia Social History marital status: number of children: 0 household members: spouse lives independently: Yes caregiver/support person: No housing: apartment pets and animals: Yes (dog) education level: master's degree occupational status: employed (active duty [employer]) current occupational exposures/hazards: Yes (stopped all Hazmat duties on learning of ) special nelson needs: No travel history: recent (domestic only) seatbelt use: always helmet use: Yes water heater temp set < 120 deg: Yes working smoke detector in home: Yes fire extinguisher in home: Yes carbon monox detector in home: Yes firearms in home: Yes firearms unloaded and locked: Yes do you feel safe at home: Yes Smoking Status: Never smoker second hand exposure: No alcohol intake: former (occasionally when not ) substance use type: does not use during the past year weight has: other (fluctuated following ruptured ectopic) well-balanced diet: daily or most days daily servings fruits/ve-4 caffeine: Yes (minimal, only decaf since becoming ) Type(s) of exercise: walking and other (hiking) frequency: 1-2 times per week Meds Home Medications and Allergies Home Medications Medication Instructions Recorded Confirmed Type aspirin 81 mg tablet,delayed 81 mg PO DAILY 01/19/24 06/17/24 History release vitamin-ferrous sulfate 1 tab PO DAILY 01/19/24 06/17/24 History 27 mg iron-folic acid 0.8 mg tablet magnesium chloride 71.5 mg 71.5 mg PO DAILY 03/27/24 06/17/24 History (magnesium chloride) tablet,delayed release (Slow-Mag) Allergies Allergy/AdvReac Type Severity Reaction Status Date / Time hydroxyzine Allergy Mild ITCHING Verified 06/17/24 22:26 nickel Allergy Mild Rash Verified 06/17/24 22:26 Review of Systems Review of Systems ROS: Yes All systems reviewed with the patient and are negative except as otherwise documented OB Exam Vital signs Blood Pressure: 138/82 Pulse Rate: 72 Respiratory Rate: 18 HENMT Head: normal to inspection Resp Effort & Inspection: normal respiratory effort Cardio Rate: regular rate Extremities Lower extremity: Yes normal to inspection GI Inspection: normal to inspection Other: srinivasa cephalic, 8-8.5# Other: deferred, planned removal of cervidil at 0930 Objective Labs 06/17/24 20:38 06/17/24 20:38 Labs: Laboratory Results - last 24 hr 06/17/24 20:38 WBC 10.3 RBC 4.03 Hgb 12.8 Hct 37.9 MCV 94.1 MCH 31.8 MCHC 33.8 RDW 13.7 Plt Count 221 Neut % (Auto) 80.2 H Lymph % (Auto) 11.9 L Wallace % (Auto) 5.4 Eos % (Auto) 2.2 Baso % (Auto) 0.3 Neut # (Auto) 8200 H Lymph # (Auto) 1200 Wallace # (Auto) 600 Eos # (Auto) 200 Baso # (Auto) 0 Sodium 130 L Potassium 3.4 Chloride 104 Carbon Dioxide 21 L BUN 6 L Creatinine 0.40 L Estimated GFR > 60 BUN/Creatinine Ratio 15.0 Glucose 106 H Calcium 9.0 Total Bilirubin 0.5 AST 28 ALT 34 Alkaline Phosphatase 206 H Total Protein 7.0 Albumin 3.7 Globulin 3.3 Albumin/Globulin Ratio 1.1 Blood Type A Positive Antibody Screen Negative Assessment and Plan Assessment and Plan Assessment and Plan narrative: 38yo at 39w2d d=early first trimester OSH US presents for overnight cervical ripening, IOL at term in setting of AMA, chronic proteinuria of undetermined significance, suspected developing gestational HTN IOL cervidil placed 06/17 at 2130 per RN --> remove this AM at 0930, planned interval SVE with anticipated placement of cueto balloon at that time for further mechanical ripening patient counseled on and in agreement with plan of care Cont CEFM/toco, Cat 1 tracing last EFW 80th% at 36wga, srinivasa 8-8.5#, too early to assess for s/sx of obstructed labor at this time Suspected developing gestational HTN intermittent non-sustained mild range BP documented >4h apart since admission PIH labs on admission wnl, known proteinuria based on prior 24h urine collection continue to monitor, anticipate dc to home with low-dose labetalol vs nifedipine vs intrapartum initiation pending clinical course AMA pt declined all aneuploidy testing with appropriate counseling 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 anticipate vaginal delivery Time-Based Coding :: [TOTAL MINUTES] spent with patient and on the chart (including review of chart, obtaining history, exam, reviewing outside data, placing orders, documenting exam and treatment plan, and counseling patient) on [DATE].
[2024-06-18 07:50] VITALS: BP 138/82; PULSE 72; RESP 18
--- NOTE | 2024-06-18 09:43 | PM.OBPNLAB ---
Date/Time Date Patient Seen: 06/18/24 Time Patient Seen: 09:43 Pain Control Pain control: tolerating well Pelvic Exam Dilation (cm): 1 Effacement (%): 50 station: -3 Amniotic membrane status: Intact Contractions Contractions on admission: irregular Contraction frequency (min): 7 Contraction pattern: Irregular Contraction intensity: Mild Status status: Category l Heart Rate Baseline: 140 Monitor Accelerations: Present Monitor Decelerations: Absent Monitor Variability: Moderate Assessment and Plan Assessment: induction ongoing Plan: continuous present management Comments: cervical cueto placed, balloon inflated with 40cc NS reassess 4h, anticipate further augmentation with IV pitocin at that time
[2024-06-18] MEDS: LACTATED RINGERS 1,000 ML 100 ML IV (14:37)
[2024-06-18] MEDS: OXYTOCIN PREMIX 30 UNIT/500 ML PLAST..BAG IV (14:40)
[2024-06-18] MEDS: NIFEdipine 30 MG TAB ER PO (14:43)
[2024-06-19] MEDS: LACTATED RINGERS 1,000 ML 100 ML IV ×2 (06:19→16:08)
--- NOTE | 2024-06-19 07:23 | P.PNOB_ITS ---
Date/Time Date Patient Seen: 06/19/24 Time Patient Seen: 06:40 Pain Control Pain control: tolerating well Comments: Pit break overnight per on-call MD provider as pt had reached max dose of pitocin without painful contractions (however regular per toco) Pit off midnight to 0600, resumed approx 30min prior to assessment this AM Pelvic Exam Dilation (cm): 4 Effacement (%): 70 station: -3 Amniotic membrane status: Intact Comments: posterior, firm Contractions Contractions on admission: irregular Monitor mode: External Pitocin rate (mU/min): 4 Contraction frequency (min): 7 Contraction pattern: Irregular Contraction intensity: Mild Status status: Category l Heart Rate Baseline: 140 Monitor Accelerations: Present Monitor Decelerations: Late (single late variable decel, resolved with maternal repositioning) Monitor Variability: Moderate Assessment and Plan Assessment: induction ongoing Plan: continuous present management and begin patient augmentation Comments: 38yo at 39w3d by early OSH US, IOL d3 in setting of AMA, GHTN IOL pit break overnight, resumed this AM Pt counseled on recommendation for interval AROM in 3h to allow for titration to adequate MVU, discussed lack of descent may be sign of obstructed labor, pt verbalized understanding and desires to proceed with IOL/goal of vaginal delivery at this time isolated late variable deceleration at time of SVE, resolved with maternal re- positioning, remainder CEFM reviewed and Cat 1 GHTN PIH labs on admission wnl BP improved with daily nifedipine 30mg XR, continue through admission and at discharge plan interval SVE 2-3h with AROM at that time
--- NOTE | 2024-06-19 09:32 | PM.OBPNLAB ---
Date/Time Date Patient Seen: 06/19/24 Time Patient Seen: 09:10 Pain Control Pain control: tolerating well Pelvic Exam Dilation (cm): 4 Effacement (%): 70 station: -3 Amniotic membrane status: Bulging (AROM clear fluid ) Contractions Contractions on admission: irregular Monitor mode: External Contraction frequency (min): 7 Contraction pattern: Irregular Contraction intensity: Mild Status status: Category l Heart Rate Baseline: 145 Monitor Accelerations: Present Monitor Decelerations: Absent Monitor Variability: Moderate Assessment and Plan Assessment: induction ongoing Plan: continuous present management Comments: AROM performed, plan interval SVE 6h/sooner PRN cat 1 tracing
--- NOTE | 2024-06-19 15:16 | PM.AN.REGBLK ---
Regional Block Pre-procedure Procedure: Continuous Lumbar Epidural for L&D Attending OB provider: Sandra Rojas PMH/ROS narrative: , 39 3/7 weeks, IOL for GHTN, AMA. ROS otherwise negative with exception of GERD. PSH/Anesthesia history narrative: None Exam narrative: Mall 2 ASA Class: II Labs: Hct 37.9 % (36-46) 06/17/24 20:38 Plt Count 221 X10^3/uL (150-400) 06/17/24 20:38 Medications: Current Medications Generic Name Dose Route Start Last Admin Trade Name Freq PRN Reason Stop Dose Admin Carboprost Tromethamine 250 mcg 06/17/24 20:00 Carboprost 250 Mcg/Ml Ampul IM Q90M PRN Bleeding Tranexamic Acid 1,000 mg/ 100 mls @ 600 mls/hr 06/17/24 20:00 Sodium Chloride IV NOW PRN Bleeding Oxytocin/Lactated Ringer's 30 unit in 500 mls @ 200 mls/hr 06/17/24 20:00 Oxytocin Premix IV CONT PRN Bleeding Protocol Oxytocin/Lactated Ringer's 30 unit in 500 mls @ 2 mls/hr 06/18/24 13:37 06/18/24 14:40 Oxytocin Premix IV 2 milliunit/min TITRATE KEVON 2 mls/hr Administration Protocol 2 MILLIUNIT/MIN Lidocaine HCl 20 ml 06/17/24 20:00 Lidocaine 1% 20 Ml INJ INTRA-OP PRN Post Delivery Methylergonovine Maleate 0.2 mg 06/17/24 20:00 Methylergonovine 0.2 Mg/Ml Vial IM NOW PRN Bleeding Methylergonovine Maleate 0.2 mg 06/17/24 20:00 Methylergonovine 0.2 Mg Tablet PO Q6HR PRN Heavy Bleeding Mineral Oil 30 ml 06/17/24 20:00 Mineral Oil 30 Ml Udc TOP PRN PRN Version Misoprostol 400 mcg 06/17/24 20:00 Misoprostol 200 Mcg Tablet SL NOW PRN Bleeding Misoprostol 800 mcg 06/17/24 20:00 Misoprostol 200 Mcg Tablet LA NOW PRN Bleeding Naloxone HCl 0.2 mg 06/17/24 20:00 Naloxone 0.4 Mg/Ml Vial IV Q2MIN PRN Opiate Reversal Nifedipine 30 mg 06/18/24 13:45 06/18/24 14:43 Nifedipine 30 Mg Tab Er PO 30 mg DAILY KEVON Administration Oxytocin 10 unit 06/17/24 20:00 Oxytocin 10 Unit/Ml Vial IM NOW PRN Bleeding Allergies: Allergies Allergy/AdvReac Type Severity Reaction Status Date / Time hydroxyzine Allergy Mild ITCHING Verified 06/17/24 22:26 nickel Allergy Mild Rash Verified 06/17/24 22:26 Procedure Insertion date: 06/19/24 Insertion time: 14:14 Prep/Local: 1% lidocaine (chlorhex skin prep, dry x 3 min) Interspace: L4-5 Patient position: sitting Needle: 17 gauge Tuohy Loss of resistance with: saline MAYKEL at (cm): 8 Catheter placed at SKIN (cm): 15 Catheter in SPACE (cm): 7 Sensory level: T10 Insertion: No CSF, No Blood, No Paresthesia with insertion, No Paresthesia with injection and No Test dose reaction Initial Medications TEST DOSE time: 14:57 BOLUS DOSE time: 15:08 BOLUS DOSE (mL): 8 BOLUS DOSE med: other (pump solution) Infusion Initial rate (mL/hr): 10 Post-procedure Anesthesia date START: 06/19/24 Anesthesia time START: 14:14 Anesthesia date END: 06/20/24 Anesthesia time END: 01:17 Post-procedure Anesthesia Assessment: Yes CV function: HR/BP stable, Yes Resp function: RR/sat/airway adequate, Yes Post-op hydration adequate, Yes Pain control adequate, Yes Nausea & vomiting absent, Yes Temperature > 36 C, Yes Mental status appropriate and Yes Anesthesia complications
[2024-06-19] MEDS: FENT 2MCG/ML BUPIV 0.125% EPI 200 MCG/100 ML PLAST..BAG 10 MCG EPIDURAL (21:04)
[2024-06-19] MEDS: ONDANSETRON 4 MG/2 ML INJ IV (23:09)
--- NOTE | 2024-06-19 23:20 | P.PNOB_ITS ---
Date/Time Date Patient Seen: 06/19/24 Time Patient Seen: 23:20 Pain Control Pain control: epidural Pelvic Exam Dilation (cm): 10 Effacement (%): 100 station: +1 Amniotic membrane status: Ruptured (AROM clear fluid ) Contractions Date/Time contractions began: 06/19/24 @ 1100 -- start of painful labor contractions Monitor mode: External Pitocin rate (mU/min): 18 Contraction pattern: Irregular Contraction intensity: Mild Status status: Category ll Heart Rate Baseline: 140 Monitor Accelerations: Present Monitor Decelerations: Episodic and Variable Monitor Variability: Moderate Comments: intermittent non-sustained late variables with maternal expulsive efforts, resolved with re-positioning intermittent variable decelerations with adequate variability and recovery Assessment and Plan Assessment: active labor Plan: Comments: HD3 IOL in setting of AMA, new gestational HTN, proteinuria without additional lab abnormality Pit break overnight, resumed at 0630, AROM clear fluid 0910 with onset of true painful labor contractions at ~1100. Patient received neuraxial analgesia, SVE 4/70/-3 at 1600 Notified per RN at 1800 of suspectec complete dilation however pt without urge to push. Recommendation to labor down until increased sensation of rectal pressure. MD to bedside 1915, interval SVE 8/C/0 with noted caput and asynclitic presentation; position changes with planned interval reassessment in 2h MD returned to bedside 2100, C/C/0 with urge to push and expulsive efforts initiated. Guided pushing with rectal/perineal counter pressure and noted excellent maternal expulsive efforts throughout. Intermittent periods of Cat 2 tracing (intermittent non-sustained late and variable decelerations) with adequate variability and excellent recovery between pushes. Noted developing caput, however slow descent to +1-2. Noted heart rate accelerations however decreased relative variability. Notified per RN of maternal request for evalution of operative delivery versus due to exhaustion at 2315; inter avni reassessment without further descent, suspect obstructed labor due to LGA vs malposition (OP). Given lack of descent patient counseled on recommendation to not attempt operative delivery and proceed with section in setting of second stage arrest. Patient in agreement with plan of care and OR team activated at 2320. Pitocin 18 --> OFF, urinary cueto replaced. IV ancef 2g, IV azithromycin 500mg ordered. Plan for utertonics available in OR at time of delivery due to increased risk of uterine atony (prolonged induction of labor, obstructed labor, suspected LGA ). h/h 12.8/37.9 on admission, plan for sterile assist from below for elevation of head due to increased risk of impaction.
[2024-06-19] MEDS: CITRIC ACID/SODIUM CITRATE 15 ML SOLUTION 30 ML PO (23:49)
[2024-06-19] MEDS: LACTATED RINGERS 1,000 ML 999 ML IV (23:50)
[2024-06-20] MEDS: CEFAZOLIN 2 GM/100 ML PREMIX 100 ML IV (00:08)
[2024-06-20] MEDS: AZITHROMYCIN 500 MG in DEXTROSE 5% IN WATER 250 ML 250 MG IV (00:13)
[2024-06-20] MEDS: TRANEXAMIC ACID 1,000 MG in SODIUM CHLORIDE 0.9% 100 ML 600 MG IV (00:18)
--- NOTE | 2024-06-20 00:29 | SUR.OPER ---
Supine on Padded OR bed, head on pillow, safety belt at thigh, arms secured on padded arm boards at <90 degrees abduction. Bump under right buttock. Legs uncrossed with pillow under knees, gel pad to heels, tape over blanket to lower legs.
[2024-06-20 00:42] LABS: Cord Venous Blood PCO2 54.2 (27-56); Cord Venous Blood PO2 21.3 (17-41); Cord Venous Blood pH 7.267 (7.25-7.45); HCO3 Cord Venous Blood 24.7; O2 Saturation Cord Venous Bld 27.7 (14-75)
--- NOTE | 2024-06-20 01:00 | SUR.OPER ---
viable baby boy born at 0028, placenta delivered at 0030, at 8/9, placenta and cord blood taken to OB by OB RN
[2024-06-20 01:20] VITALS: PULSE 110; RESP 17; TEMP 36.4; O2SAT 98
--- NOTE | 2024-06-20 01:23 | P.OP_ITS ---
Operative Date/Time/Diagnoses Date of procedure: 06/20/24 Time of procedure: 00:25 Pre-op diagnosis: 1) IUP at 39w3d; 2) second stage arrest Post-op diagnosis: same Procedure & Clinicians Procedure: primary low transverse section Same procedure as scheduled: Yes Indications: 1) IUP at 39w3d 2) second stage arrest Surgeon: Sandra Rojas Click Yes if Unassisted: Yes Anesthesia Type: General Operative Notes Findings: LBMI in cephalic OP position grossly normal uterus, bilateral adnexae Closure Type: primary Specimen(s): cord blood and cord pH Intraoperative meds administered: Pitocin Estimated Blood Loss (mL): 500 Blood products transfused: none Procedure in detail: Pt was taken to the operating room and transferred to OR table.? The epidural was dosed to a surgical level per anesthesia.? The patient was placed in the supine position, prepped and draped in a sterile fashion.? A timeout was preformed. Prior to incision the level of anesthesia was rechecked and found to be inadequate despite additional doses of neuraxial analgesia with adequate time to allow medication to take effect. Two provider decision with patient assent to proceed under general anesthesia.? A timeout was once again performed. Patient was intubated under direct visual guidance per anesthesia. With confirmed placement of ETT procedure was undertaken in modified stat/Damon method. A pfannensteil incision was made 2cm superior to the pubic symphysis.? This incision was carried down sharply to the level of the rectus fascia.? The fascia was incised sharply with knife and the incision was extended bilaterally and superiorly using delgado scissors. The superior border of the fascia was elevated with two Malachi clamps and bluntly dissected off of the rectus muscles followed by incision of the median raphe with the delgado scissors.? The peritoneum was entered bluntly under direct visualization.? The peritoneal opening was then extended manually.? The derrick boat operator?s hand was inserted in the abdomen and the uterus was found to be in a dextro-rotated position. The bladder blade was then inserted. Next, a low transverse incision was made in the uterus using the knife.? The incision was extended laterally and superiorly bilaterally bluntly.? The derrick boat operator?s hand was then inserted into the uterus to find an in the vertex OP position.? The bladder blade was removed. A sterile child care center assistant director in place between the patient's legs applied upward pressure on the head and in tandem with this elevation the ?s vertex was grasped, flexed and brought to the incision where the was delivered atraumatically using fundal pressure, vigorous cry and excellent tone noted at delivery.? The cord was doubly clamped and cut.?An additional segment of cord was doubly clamped/cut and set aside to collect cord gas. The infant was then passed to waiting pediatricians.? The placenta was delivered via gentle traction with additional manual extraction as necessary; the placenta was then passed off the field.? The uterus was exteriorized and the uterine cavity was wiped of all clots and debris.? The bladder blade was reinserted and the hysterotomy incision was repaired with #0 vicryl in a running locked fashion, followed by a second #0 vicryl in an imbricating fashion.? Tubes, ovaries and adnexae were visualized and noted to be grossly normal in appearance.? The uterus was replaced into the abdomen without difficulty and the hysterotomy was noted to be hemostatic off of tension.? The rectus fascia was closed using #1 vicryl in a running fashion.? The incision was irrigated and hemostasis was achieved using the bovie.? The subcutaneous space was reapproximated using plain gut suture in a running fashion.? The skin was closed using 4-0 monocryl followed by application of steristrips and abdominal compression dressing.? All counts were correct x2.? The pt tolerated the procedure well and without difficulty. Fundal contents were expressed and fundus noted to be firm, level noted prior to patient transfer to PACU in stable condition.? Complications: none [place] Baby 1: Delivery Date: 06/20/24 Delivery Time: 00:28 Infant Gender: Male Presentation: vertex Position: Occiput Posterior Placental Delivery Description: Manual Removal Cord Vessel Description: 3 Vessels score (1 min): 8 score (5 min): 9 weight: 8 lb 12.39 oz Post-operative Condition: stable Disposition: PACU Aftercare: routine postop
[2024-06-20] MEDS: MEPERIDINE 50 MG/ML INJ 12.5 MG IV ×2 (01:27→01:47)
[2024-06-20 01:40] VITALS: BP 159/96; PULSE 95; RESP 18; O2SAT 99
[2024-06-20] MEDS: fentaNYL 100 MCG/2 ML INJ IV (01:49)
[2024-06-20 01:52] VITALS: BP 153/92; PULSE 85; RESP 16; O2SAT 99
[2024-06-20 01:58] VITALS: BP 155/89; PULSE 86; RESP 14; TEMP 36.6; O2SAT 99
[2024-06-20 02:05] VITALS: BP 154/94; PULSE 82; RESP 14; O2SAT 99
[2024-06-20] MEDS: LACTATED RINGERS 1,000 ML 100 ML IV (02:32)
[2024-06-20] MEDS: KETOROLAC 30 MG/ML VIAL IV ×4 (02:32→21:00)
[2024-06-20] MEDS: ACETAMINOPHEN 325 MG TABLET 650 MG PO ×3 (04:28→20:57)
[2024-06-20 08:57] LABS: Add Manual Diff / Slide Review NO; Basophils Absolute Auto 100 /uL (0-100); Basophils Percent Auto 0.4 % (0-2); Eosinophils Absolute Auto 0 /uL (0-450); Eosinophils Percent Auto 0.2 % (2-4); Hematocrit 33.8 % (36-46); Hemoglobin 11.6 g/dL (12.0-16.0); Lymphocytes Absolute Auto 900 /uL (1100-4500); Lymphocytes Percent Auto 5.1 % (25-40); Mean Corpuscular HGB Conc 34.3 % (30-36); Mean Corpuscular Volume 93.2 fL (80-100); Monocytes Absolute Auto 900 /uL (0-900); Monocytes Percent Auto 5.1 % (3-14); Neutrophils Absolute Auto 16300 /uL (1500-7000); Neutrophils Percent Auto 89.2 % (50-75); Platelet Count 184 X10^3/uL (150-400); Red Blood Cell Count 3.63 X10^6/uL (4.0-5.2); Red Cell Distribution Width 13.9 % (11.6-14.8); White Blood Cell Count 18.3 X10^3/uL (4.5-11.0)
[2024-06-20] MEDS: NIFEdipine 30 MG TAB ER PO (09:09)
[2024-06-20] MEDS: SIMETHICONE 80 MG TABLET PO ×2 (09:38→15:14)
[2024-06-20] MEDS: DOCUSATE 100 MG CAPSULE PO ×2 (09:38→20:59)
[2024-06-20] MEDS: OXYCODONE IR 5 MG TABLET PO ×3 (09:40→20:59)
--- NOTE | 2024-06-20 12:11 | P.PNOB_ITS ---
Subjective - OB Subjective Patient comments: no complaints and pain well controlled [place] baby status: doing well and nursing well feeding status: exclusively breast feeding Narrative: POD0 s/p 1LTCS, second stage arrest Date Patient Seen: 06/20/24 Time Patient Seen: 08:00 Interval history: POD0 cueto out, has not yet ambulated/voided pain adequately controlled with current analgesia well tolerating diet, unsure if passed flatus yet Exam Vital Signs (past 8 hours): Oxygen Delivery Method Room Air maternal VSS/afebrile, reviewed in OBIX Const General: cooperative, healthy appearing and comfortable Resp Effort & Inspection: normal respiratory effort and able to speak in complete sentences Cardio Pulses: normal peripheral pulses GI Other: surgical dressing in place, c/d/i Other: deferred, cueto OUT Neuro General: patient alert, patient awake and patient oriented x3 Extrem General: normal to inspection Psych Mental Status: mental status grossly normal Judgment: judgment good Objective Labs 06/20/24 08:40 06/17/24 20:38 Labs: Laboratory Results - last 24 hr 06/20/24 06/20/24 00:36 08:40 WBC 18.3 H RBC 3.63 L Hgb 11.6 L Hct 33.8 L MCV 93.2 MCH 32.0 MCHC 34.3 RDW 13.9 Plt Count 184 Neut % (Auto) 89.2 H Lymph % (Auto) 5.1 L [place] % (Auto) 5.1 Eos % (Auto) 0.2 L Baso % (Auto) 0.4 Neut # (Auto) 05195 H Lymph # (Auto) 900 L [place] # (Auto) 900 Eos # (Auto) 0 Baso # (Auto) 100 Cord VBG pH 7.267 Cord VBG pCO2 54.2 Cord VBG pO2 21.3 Cord VBG HCO3 24.7 Cord VBG Base Excess -3.0 Cord VBG O2 Sat 27.7 Assessment & Plan Plan day: 0 plan OB: routine postop care Comments: routine postop/ care encourage ambulation, use of abd binder PRN , support PRN cont nifedipine 30mg XR in setting of GHTN, high risk preE Time-Based Coding :: [TOTAL MINUTES] spent with patient and on the chart (including review of chart, obtaining history, exam, reviewing outside data, placing orders, documenting exam and treatment plan, and counseling patient) on [DATE].
[2024-06-21] MEDS: OXYCODONE IR 5 MG TABLET PO ×5 (02:58→22:02)
[2024-06-21] MEDS: ACETAMINOPHEN 325 MG TABLET 650 MG PO ×3 (02:58→17:54)
[2024-06-21] MEDS: IBUPROFEN 600 MG TABLET PO ×3 (02:59→17:53)
--- NOTE | 2024-06-21 09:04 | P.PNOB_ITS ---
Subjective - OB Subjective Patient comments: incisional pain, tolerating diet and flatus present baby status: doing well and nursing well (Patient with sore nipples this morning) [place] feeding status: exclusively breast feeding Date Patient Seen: 06/21/24 Time Patient Seen: 09:05 Interval history: Patient is postoperative day 1 primary low-transverse section for second-stage arrest. The patient is having incisional pain when she is moving. She complains of overall muscle fatigue and discomfort. She complains of pain at her epidural site. She was feeling like she was doing well with however now her nipples are quite sore. She denies headaches, scotomata, epigastric pain. She is ambulatory. She is passing gas. Exam Vital Signs (past 8 hours): Blood pressure currently 126/74. Patient did have 1 elevated blood pressure 184/92 but generally 140s over 80s for blood pressures. Pulse of 89, temperature 98.3? Oxygen Delivery Method Room Air Narrative Exam Narrative: Abdomen is soft with minimal distention and nontender. Uterus is firm, at U, nontender. Dressing is clean, dry, intact. Mild lochia. Extremities with trace edema and nontender. Objective Labs 06/20/24 08:40 06/17/24 20:38 Assessment & Plan Plan day: 1 plan OB: routine postop care Comments: Monitor for symptoms of preeclampsia. Time-Based Coding :: [TOTAL MINUTES] spent with patient and on the chart (including review of chart, obtaining history, exam, reviewing outside data, placing orders, documenting exam and treatment plan, and counseling patient) on [DATE].
[2024-06-21] MEDS: SIMETHICONE 80 MG TABLET PO (09:07)
[2024-06-21] MEDS: NIFEdipine 30 MG TAB ER PO (09:07)
[2024-06-21] MEDS: DOCUSATE 100 MG CAPSULE PO ×2 (09:07→22:04)
[2024-06-21] MEDS: LANOLIN OINT 7 GM 1 APPLIC TOP (17:57)
[2024-06-22] MEDS: ACETAMINOPHEN 325 MG TABLET 650 MG PO ×3 (00:01→12:29)
[2024-06-22] MEDS: OXYCODONE IR 5 MG TABLET PO ×3 (02:22→12:31)
[2024-06-22] MEDS: IBUPROFEN 600 MG TABLET PO ×3 (06:02→12:31)
--- NOTE | 2024-06-22 08:36 | P.DS_ITS ---
Discharge Providers Provider Date of admission: 06/17/24 19:23 Discharge Date: 06/22/24 Primary care physician: Marcela MAGDALENO Provider Consults: 06/17/24 20:00 Consult to Anesthesiology Urgent Comment: Consulting Provider: Anesthesiologist Reason for consultation: Epidural 06/20/24 02:04 Consult to Route Vending Machine Servicer Routine Comment: Discharge provider: Sandra Rojas MD Summary Hospital Course Date Patient Seen: 06/22/24 Time Patient Seen: 07:15 Diagnoses: POD2 s/p 1LTCS for SSA, GHTN diagnosed on admission without preE/severe features Hospital Course: 38yo admitted to facility at 39w2d, medically indicated IOL in setting of AMA, chronic proteinuria of undetermined etiology without additional lab abnormalities. Patient was noted to have persistent sustained mild range BP on admission without additional s/sx of preE. She was started on low-dose oral nifedipine 30mg XR with adequate response. IOL was started with overnight cervical ripening (cervidil) followed by mechanical ripening (cueto balloon) and further augmentation with pitocin. Patient received epidural for neuraxial analgesia. AROM of clear fluid was performed. Patient had slow progression to complete dilation however head never descended below +1 with >2h of adequate maternal expulsive efforts and primary was recommended. Patient epidural was dosed to surgical level however remained with sensation at the midline and thus procedure was performed under general anesthesia. Delivery itself was uncomplicated, vigorous male 8/9 with wgt ~3900g. Patient had a subsequently uncomplicated and postoperative course and met all discharge milestones on POD2 requesting dc to home. Oral antihypertensive agent continued on discharge, planned 1wk f/u in office for BP and incision check. Peripartum Data Delivery Method: Section Laceration Description: None complications: none [place] 1: Gender: Male Disposition of : home Status at Discharge Cognitive/behavioral status at discharge: oriented Functional status at discharge: independent ambulation Overall status at discharge: patient is back to baseline Time Spent with Patient Time attestation: Total time spent providing and/or coordinating discharge services: Time spent: Less than 30 minutes Objective Labs 06/20/24 08:40 06/17/24 20:38 Exam Vital Signs (past 8 hours): Oxygen Delivery Method Room Air maternal VSS/afebrile, reviewed in OBIX persistent high normal BP (130s/80s) Const General: cooperative, comfortable and well developed Nutritional Appearance: average body habitus Orientation: alert, awake and oriented x3 Limitations: mental status not altered Resp Effort & Inspection: normal respiratory effort and able to speak in complete sentences Cardio Pulses: normal peripheral pulses GI Other: mild appropriate postop tenderness, fundus firm << umb without tenderness aquacel in place, c/d/i Skin General: no rashes or lesions noted Neuro General: patient alert, patient awake and patient oriented x3 Extrem General: normal to inspection Psych Mental Status: mental status grossly normal Judgment: judgment good Discharge Plan Discharge Plan Patient Disposition: Home Provider Discharge Comment: No heavy lifting (>10-15lbs) for 6 weeks. You may shower with the dressing in place. Call your provider with any concerns of headache that does not improve with tylenol, visual changes (seeing flashers), feeling lightheaded or dizzy/like your blood pressure is too low Discharge orders & Medications Prescriptions: New nifedipine 30 mg Tablet Extended Release 24hr 30 mg PO DAILY Qty: 30 0RF acetaminophen 325 mg Tablet 650 mg PO Q6H 30 Days Qty: 240 0RF ibuprofen 600 mg Tablet 600 mg PO Q6H Qty: 30 0RF oxycodone 5 mg Tablet 5 mg PO Q4HR PRN (Reason: Pain, Moderate (4-6)) Qty: 12 0RF Purelan Cream 1 applic topical PRN PRN (Reason: Skin protectant) Qty: 7 3RF Continued vit-ferrous sulfat-FA 27 mg iron- 0.8 mg tablet 1 tab PO DAILY Discontinued aspirin 81 mg tablet,delayed release (DR/EC) 81 mg PO DAILY Slow-Mag 71.5 mg tablet,delayed release (DR/EC) 71.5 mg PO DAILY Follow up/Referrals: Sandra Rojas MD [Physician] - (Your one week incision check is scheduled with Dr. Rojas on June 27 @1:45pm.) Skin/Wound/Dressing Care Report to your healthcare provider any signs of infection, such as:: chills, fever, increased pain, unusual drainage and unusual redness Visit Report/Discharge Packet Stand Alone Forms: Discharge: Care, Patient Portal/API, Stroke Signs & Symptoms Discharge Data Primary Care Provider: ProviderMarcela
[2024-06-22] MEDS: PRENATAL VIT,CALC/IRON/FOLIC 1 TABLET 1 TAB PO (09:11)
[2024-06-22] MEDS: NIFEdipine 30 MG TAB ER PO (09:11)
[2024-06-22] MEDS: DOCUSATE 100 MG CAPSULE PO (09:12)
[2024-06-22] MEDS: MEASLES,MUMPS,RUBELLA VACC/PF 0.5 ML VIAL SUBCUT (12:50)
[2024-06-22 13:08] VITALS: BP 154/94; PULSE 82; RESP 14; TEMP 36.6
== END 2024-06-22 13:08 | disposition home or self-care (01) | DRG 788 ==
PROVIDERS: Admitting Provider Obstetrics & Gynecology; Referring Provider Obstetrics & Gynecology; Visit Provider Obstetrics & Gynecology
PROC: 10D00Z1 Extraction of Products of Conception, Low, Open Approach (ICD-10-PCS; CPT 59514; principal; 2024-06-20 00:15)
DX: O13.4 Gestational [pregnancy-induced] hypertension without significant proteinuria, complicating childbirth (principal); O62.1 Secondary uterine inertia; O76 Abnormality in fetal heart rate and rhythm complicating labor and delivery; Z3A.39 39 weeks gestation of pregnancy; Z67.10 Type A blood, Rh positive; Z37.0 Single live birth; Z23 Encounter for immunization
CPT/HCPCS: 36415; 59050; 59200; 59515; 80053; 82803; 85025; 86850; 86900; 86901; G0379; J0330; J0690; J1885; J2175; J2274; J2405; J2590; J2704; J3010

== ENCOUNTER → 2024-07-30 14:26 | Outpatient (CLI) | payer OTHER, SELFPAY ==
[2024-07-30 15:42] LABS: Add Manual Diff / Slide Review NO; Basophils Absolute Auto 100 /uL (0-100); Basophils Percent Auto 0.8 % (0-2); Eosinophils Absolute Auto 500 /uL (0-450); Eosinophils Percent Auto 5.9 % (2-4); Hematocrit 38.7 % (36-46); Hemoglobin 13.3 g/dL (12.0-16.0); Lymphocytes Absolute Auto 1400 /uL (1100-4500); Lymphocytes Percent Auto 18.3 % (25-40); Mean Corpuscular HGB Conc 34.4 % (30-36); Mean Corpuscular Hemoglobin 31.4 PG (26-34); Mean Corpuscular Volume 91.1 fL (80-100); Monocytes Absolute Auto 400 /uL (0-900); Monocytes Percent Auto 5.5 % (3-14); Neutrophils Absolute Auto 5400 /uL (1500-7000); Neutrophils Percent Auto 69.5 % (50-75); Platelet Count 311 X10^3/uL (150-400); Red Blood Cell Count 4.25 X10^6/uL (4.0-5.2); Red Cell Distribution Width 12.6 % (11.6-14.8); White Blood Cell Count 7.8 X10^3/uL (4.5-11.0)
[2024-07-30 16:06] LABS: Alanine Aminotransferase 69 IU/L (<35); Albumin 4.7 g/dL (3.5-5.0); Albumin Globulin Ratio 1.4 (1.0-2.8); Alkaline Phosphatase 101 U/L (38-126); Aspartate Aminotransferase 39 IU/L (14-36); Bilirubin Total 0.3 mg/dL (0.2-1.3); Blood Urea Nitrogen 11 mg/dL (7-17); Calcium 9.2 mg/dL (8.4-10.2); Carbon Dioxide 25 mmol/L (22-32); Chloride 102 mmol/L (98-107); Estimated Glomerular Filt Rate > 60 mL/min (>60); Globulin 3.4 g/dL (1.7-4.1); Glucose 86 mg/dL (70-100); HEMOLYSIS < 15 (0-50); Potassium 4.2 mmol/L (3.4-5.1); Sodium 138 mmol/L (137-145); Total Protein 8.1 g/dL (6.3-8.2)
== END ==
PROVIDERS: Referring Provider Obstetrics & Gynecology; Visit Provider Obstetrics & Gynecology
DX: Z39.1 Encounter for care and examination of lactating mother (principal); Z13.0 Encounter for screening for diseases of the blood and blood-forming organs and certain disorders involving the immune mechanism
CPT/HCPCS: 36415; 80053; 85025

== ENCOUNTER → 2025-01-04 08:11 | Outpatient (CLI) | payer OTHER, SELFPAY ==
--- NOTE | 2025-01-04 08:12 | DI.MRI.S_ITS ---
PROCEDURE: MR HIP RT WO CON INDICATIONS: pain TECHNIQUE: Noncontrast coronal T1 spin echo and STIR through the bony pelvis. Coronal and axial T2 fast spin echo with fat saturation, sagittal T1 spin echo, and oblique axial T2 fast spin echo with fat saturation through the hip. COMPARISON: None. FINDINGS: Image quality: Excellent. Bones and joints: Bone marrow of the pelvic ring and proximal femurs show normal signal throughout. No intraosseous lesions or fractures. No avascular necrosis of the femoral heads. The visualized lower lumbar spine appears normally aligned. Tendons and ligaments: Low-grade partial-thickness tear involving distal right gluteus medius tendon at its insertion on greater trochanter. Distal right gluteus minimus tendinosis is seen. The nearby proximal iliotibial band also appears intact. The iliopsoas tendon appears intact, without adjacent bursal fluid collections or evidence for impingement syndrome. The origin of the hamstring tendon is intact at the ischial tuberosity. Labrum and cartilage: Subtle signal abnormality and fraying involving superior anterior right acetabular labrum suggestive of superior anterior labral tear. Cartilage surface of the femoral head appears of normal thickness. Soft tissues: Visualized muscles demonstrate normal bulk and internal signal. Quadratus femoris muscle demonstrates no internal edema to suggest ischiofemoral impingement. The proximal sciatic neurovascular bundle appears normal adjacent to the hamstring tendons. No free pelvic fluid. Bladder wall thickness is normal. Genitourinary structures and bowel loops appear normal where visualized. IMPRESSION: 1. No marrow edema. No pelvic or hip fracture. No suspicious intraosseous lesions. No evidence of avascular necrosis of femoral head. 2. Low-grade partial-thickness tear involving distal right gluteus medius tendon. Distal right gluteus minimus tendinosis. No other muscle or tendon signal abnormalities. 3. Suggestion of superior anterior right acetabular labral tear. Dictated by: Andrea Main M.D. on 01/04/2025 at 20:38 Approved by: Andrea Main M.D. on 01/04/2025 at 20:48
== END ==
LOC: MRI 08:11
PROVIDERS: Referring Provider Nurse Practitioner Family; Visit Provider Nurse Practitioner Family
DX: S76.311A Strain of muscle, fascia and tendon of the posterior muscle group at thigh level, right thigh, initial encounter (principal); M25.551 Pain in right hip
CPT/HCPCS: 73721